=== PATIENT | male | born 1970 | race Two or more races ===

== ENCOUNTER 2022-11-19 23:55 | Emergency (ER) | payer OTHER ==
[~2022-11-19] VITALS: Ht 165.1 cm; Wt 83.9 kg
[2022-11-20 00:09] VITALS: BP 148/73
== END 2022-11-20 01:38 ==
LOC: ER 23:59
DX: Z02.89 Encounter for other administrative examinations (principal); Z20.822 Contact with and (suspected) exposure to COVID-19
CPT/HCPCS: 99283; 87426; C9803